=== PATIENT | male | born 1945 | race Caucasian/White ===

== ENCOUNTER 2018-11-19 12:51 | Emergency (ER) | payer MEDICARE, OTHER ==
--- NOTE | 2018-11-19 14:10 | ED Physician Documentation ---
PD HPI ABD PAIN - Stated complaint Stated Complaint: ABD PX - Chief complaint Chief Complaint: Abd Pain - History obtained from History obtained from: Patient - History of Present Illness Timing - onset: Today (73-year-old gentleman with stage IV esophageal cancer, had a 4.7 mm nephrolith in the left kidney on a scan done a few months ago for cancer staging. Had renal colic before, never needed intervention. Had left- sided abdominal pain radiating to the left testicle for several hours this morning with nausea but no vomiting. Now resolved and pain-free except for his chronic cancer pain for which she does not take any routine medications.) Review of Systems Constitutional: denies: Fever, Chills GI: reports: Abdominal Pain, Nausea. denies: Vomiting, Diarrhea PD PAST MEDICAL HISTORY - Past Medical History Cardiovascular: None Respiratory: Other Neuro: None Endocrine/Autoimmune: None GI: GERD : Incontinence, Other Psych: None Musculoskeletal: Other Derm: Other - Present Medications Home Medications: Ambulatory Orders Medication Instructions Recorded Confirmed Cyanocobalamin (Vitamin B-12) 1 cap ORAL DAILY 02/10/18 06/02/18 [Vitamin B-12] Doxazosin [Cardura] 1 tab ORAL DAILY 02/10/18 06/02/18 Lidocaine/Prilocain 2.5% Cream 30 gm TOP PRN PRN #1 tube 02/15/18 06/02/18 [Emla 2.5% Cream] Ondansetron HCl [Zofran] 8 mg PO Q8H PRN 02/15/18 06/02/18 Prochlorperazine Maleate 10 mg PO Q6H PRN #30 tablet 02/15/18 06/02/18 [Compazine] Ferrous Sulfate 325 mg PO DAILY 04/07/18 06/02/18 Omeprazole 1 tab PO BID 04/07/18 06/02/18 dexAMETHasone [Dexamethasone] 8 mg PO DAILY #30 tablet 05/07/18 06/02/18 - Allergies Allergies/Adverse Reactions: Allergies Allergy/AdvReac Type Severity Reaction Status Date / Time No Known Drug Allergies Allergy Verified 06/02/18 09:47 PD ED PE NORMAL - Vitals Vital signs reviewed: Yes - General General: Alert and oriented X 3, No acute distress - Abdomen Abdomen: Normal bowel sounds, Soft, Non tender - Derm Derm: No rash - Extremities Extremities: No edema, No calf tenderness / cord - Neuro Neuro: Alert and oriented X 3, Normal speech Results - Vitals Vitals: Vital Signs - 24 hr 11/19/18 13:21 Temperature 36.6 C Heart Rate 74 Respiratory 16 Rate Blood Pressure 139/77 H O2 Saturation 98 Oxygen O2 Source Room air - Labs Labs: Laboratory Tests 11/19/18 11/19/18 14:10 14:10 WBC 7.8 RBC 3.78 L Hgb 11.7 L Hct 35.4 L MCV 93.7 MCH 31.0 MCHC 33.1 RDW 13.1 Plt Count 202 MPV 10.4 Neut # (Auto) 6.9 H Lymph # (Auto) 0.4 L Divide # (Auto) 0.4 Eos # (Auto) 0.1 Baso # (Auto) 0.0 Absolute Nucleated RBC 0.00 Nucleated RBC % 0.0 Sodium 138 Potassium 4.1 Chloride 101 Carbon Dioxide 25 Anion Gap 12.0 BUN 15 Creatinine 1.0 Estimated GFR (MDRD) 73 L Glucose 147 H Calcium 9.2 Total Bilirubin 0.7 AST 27 ALT 21 Alkaline Phosphatase 115 Total Protein 7.8 Albumin 3.5 Globulin 4.3 H Albumin/Globulin Ratio 0.8 L Lipase 15 L - Rads (name of study) KUB XR Radiology: EMP read contemporaneously (neg) PD MEDICAL DECISION MAKING - ED course ED course: 73-year-old gentleman with history of renal colic presents with resolved left- sided abdominal pain likely due to same. On return from x-ray he passed the stone and remained pain-free. The stone was sent for analysis. Departure - Departure Disposition: 01 Home, Self Care Clinical Impression: Renal colic Condition: Good Record reviewed to determine appropriate education?: Yes Health Concerns: Abdominal pain due to renal colic Plan of Treatment: He passed the stone in the department therefore no specific treatment is needed. The stone will be sent for analysis, follow-up with your primary care physician for results. Care Goals: Pain is gone Assessment: as above Instructions: ED Stone Renal W Colic
[2018-11-19 14:23] LABS: BASOPHILS % (AUTO) 0.4 %; EOSINOPHILS # (AUTO) 0.1 10^3/uL (0.0-0.7); EOSINOPHILS % (AUTO) 0.6 %; HGB - HEMOGLOBIN 11.7 g/dL (14.0-18.0); LYMPHOCYTES # (AUTO) 0.4 10^3/uL (1.5-3.5); LYMPHOCYTES % (AUTO) 5.3 %; MEAN CORPUSCULAR HGB CONC 33.1 g/dL (32.0-36.0); MEAN CORPUSCULAR VOLUME 93.7 fL (80.0-94.0); MEAN PLATELET VOLUME 10.4 fL (7.4-11.4); MONOCYTES # (AUTO) 0.4 10^3/uL (0.0-1.0); NEUTROPHILS # (AUTO) 6.9 10^3/uL (1.5-6.6); NEUTROPHILS % (AUTO) 88.2 %; PLT - PLATELET COUNT 202 10^3/uL (130-450); RED BLOOD COUNT 3.78 10^6/uL (4.70-6.10); RED CELL DISTRIBUTION WIDTH 13.1 % (12.0-15.0); WHITE BLOOD COUNT 7.8 x10^3/uL (4.8-10.8)
[2018-11-19 14:37] LABS: ALBUMIN 3.5 g/dL (3.2-5.5); ALBUMIN/GLOBULIN RATIO 0.8 (1.0-2.2); BILIRUBIN,TOTAL 0.7 mg/dL (0.2-1.0); CALCIUM 9.2 mg/dL (8.5-10.3); TOTAL PROTEIN 7.8 g/dL (6.7-8.2)
--- NOTE | 2018-11-19 14:48 | XRAY Report ---
Reason: Resolved L abd pain, H/O 4.7mm L renal stone Procedure Date: 11/19/2018 Accession Number: [id number] / [id number] Procedure: XR - Abdomen 1 View X-Ray CPT Code: 85447 FULL RESULT: EXAM: ABDOMEN RADIOGRAPHY EXAM DATE: 11/19/2018 02:41 PM. CLINICAL HISTORY: Resolved left abdominal pain, history of 4.7 mm left renal stone. COMPARISON: None. TECHNIQUE: 1 view. FINDINGS: Bowel Gas Pattern: Within normal limits. No dilated loops. Other: No definite renal calculus is detected. Grouping of cuboidal appearing densities in the right upper quadrant is felt to represent cholelithiasis. IMPRESSION: No definite renal calculus. RADIA
[2018-11-19 14:57] LABS: BILIRUBIN,URINE NEGATIVE (NEGATIVE); GLUCOSE, URINE (UA) NEGATIVE (NEGATIVE); KETONES,URINE (UA) >=80 mg/dL (NEGATIVE); LEUKOCYTE ESTERASE, URINE NEGATIVE (NEGATIVE); NITRITE,URINE NEGATIVE (NEGATIVE); OCCULT BLOOD,URINE MODERATE (NEGATIVE); PH,URINE 5.5 PH (5.0-7.5); PROTEIN,URINE TRACE mg/dL (NEGATIVE); UROBILINOGEN,URINE 0.2 (NORMAL) E.U./dL (NORMAL)
[2018-11-19 14:58] LABS: CLARITY,URINE SCL (CLEAR)
[2018-11-19 15:12] VITALS: BP 133/92
[2018-11-19 15:13] LABS: RBC,URINE TNTC /HPF (0-5)
[2018-11-19 15:14] LABS: BACTERIA,URINE Few /HPF (None Seen); MUCUS,URINE Few Strands; SQUAMOUS EPITHELIAL CELL,UR FEW Squamous (<= Few)
[2018-11-23 20:30] LABS: SPECIMEN SOURCE Kidney
== END 2018-11-19 15:22 | disposition home or self-care (01) ==
LOC: ED 12:51
DX: N20.0 Calculus of kidney (principal); C15.9 Malignant neoplasm of esophagus, unspecified
CPT/HCPCS: 36415; 74018; 80053; 81001; 81003; 82365; 83690; 85025; 87086; 99283

== ENCOUNTER 2018-12-23 08:07 | Outpatient (CLI) | payer MEDICARE, OTHER ==
[2018-12-23] MEDS ORDERED: IOVERSOL 320 100 ML VIAL IVP ONE ×2 (08:27→12:02)
[2018-12-23] MEDS ORDERED: IOVERSOL 320 50 ML VIAL ONE (08:27)
[2018-12-23] MEDS ORDERED: IOVERSOL 320 50 ML VIAL PO ONE (12:02)
--- NOTE | 2018-12-24 16:06 | CT Report ---
Reason: ANDEOCARCINOMA (ESOPHAGEAL) Procedure Date: 12/23/2018 Accession Number: [id number] / [id number] Procedure: CT - Abdomen/Pelvis W CPT Code: FULL RESULT: EXAM: CT CHEST, ABDOMEN AND PELVIS EXAM DATE: 12/23/2018 09:48 AM. CLINICAL HISTORY: Adenocarcinoma (ESOPHAGEAL). COMPARISONS: ABDOMEN/PELVIS W/ 04/13/2018 12:24 PM CHEST W/ 04/13/2018 12:24 PM. TECHNIQUE: Routine helical CT imaging was performed through the chest, abdomen, and pelvis. IV contrast: OPTI 320 100ML. Enteric contrast: Yes. Reconstructions: Coronal and sagittal. In accordance with CT protocol optimization, one or more of the following dose reduction techniques were utilized for this exam: automated exposure control, adjustment of mA and/or KV based on patient size, or use of iterative reconstructive technique. FINDINGS: Lungs/Pleura: New small right pleural effusion. No pneumothorax. Central airways are normal except for some minimal mucus in the distal trachea. No distinct lung nodules. No generalized interstitial abnormality. No emphysema. Minimal dependent atelectasis in the right upper lobe and right lower lobe. Mediastinum: As before, the patient is status post distal esophagectomy and gastric pull-up. As before, there is a stent spanning the intrathoracic esophagogastric junction. There is moderate to marked circumferential wall thickening around the stent in the region of the gastric pull-up which is mildly increased from before. There is also some increased mild lobulation of soft tissue in the distal esophagus just above the stent. There is contrast within the lumen of the distal stent. No discrete enlarged lymph nodes are identified. Thyroid gland is unremarkable. Liver: Normal. Gallbladder/Bile Ducts: Unremarkable. Spleen: Normal. Pancreas: Normal. Adrenal Glands: Normal. Kidneys: Normal. No masses or hydronephrosis. Peritoneal Cavity/Bowel: Distal esophagectomy and gastric pull up, as described above. Small bowel loops are nondilated. The appendix is normal. Enteric contrast reaches the mid ascending colon at the time of the scan. There is mild descending and sigmoid colon diverticulosis. There is no focal pericolonic fat stranding. There is no lymphadenopathy, ascites, or pneumoperitoneum. Pelvic Organs: Small volume bladder. Moderate prostatomegaly. Seminal vesicles unremarkable. Vasculature: There is mild calcification in the abdominal aorta without abnormal dilation. Otherwise unremarkable. Bones: Moderate diffuse idiopathic skeletal hyperostosis in the mid to lower thoracic spine. Minimal diffuse idiopathic skeletal hyperostosis in the lumbar spine. There is mild multilevel bilateral lumbar facet osteoarthritis. Other: Minimal diffuse body wall edema. IMPRESSION: 1. Distal esophagectomy and gastric pull-up with a stent at the intrathoracic esophagogastric junction, as before. There is mild increased moderate to marked circumferential wall thickening around the stent suggesting increasing tumor infiltration. 2. No joe lymphadenopathy. 3. No metastatic disease is identified. 4. New small right pleural effusion and minimal right basilar atelectasis. RADIA
== END 2018-12-23 08:08 | disposition home or self-care (01) ==
LOC: DI 08:07
PROVIDERS: ATTEND Internal Medicine Hematology & Oncology
DX: C16.0 Malignant neoplasm of cardia (principal); Z90.49 Acquired absence of other specified parts of digestive tract; J90 Pleural effusion, not elsewhere classified
CPT/HCPCS: 71260; 74177; Q9967